=== PATIENT | female | born 1945 | race Caucasian/White ===

== ENCOUNTER 2023-06-06 10:35 | Outpatient (CLI) | payer MEDICARE | END 2023-06-06 10:36 | disposition home or self-care (01) | LOC: CT 10:35 | PROVIDERS: ATTEND Orthopaedic Surgery | DX: S72.114A Nondisplaced fracture of greater trochanter of right femur, initial encounter for closed fracture (principal); S72.21XD Displaced subtrochanteric fracture of right femur, subsequent encounter for closed fracture with routine healing ==